=== PATIENT | male | born 1965 | race Caucasian/White ===

== ENCOUNTER 2018-11-26 06:13 | Day surgery (SDC) | payer OTHER ==
[~2018-11-26] VITALS: Ht 165.1 cm; Wt 77.1 kg
[2018-11-26] MEDS ORDERED: MIDAZOLAM 2 MG/2 ML VIAL ONE ×2 (07:40)
[2018-11-26] MEDS ORDERED: fentaNYL 0.05 MG/ML VIAL ONE (07:40)
[2018-11-26] MEDS ORDERED: MIDAZOLAM 2 MG/2 ML VIAL IVP SCH (10:45)
== END 2018-11-26 08:50 | disposition home or self-care (01) ==
LOC: MDS 06:13 → MMU 06:15 → MDS 08:50
PROVIDERS: ATTEND Internal Medicine Gastroenterology
DX: K31.89 Other diseases of stomach and duodenum (principal); E66.9 Obesity, unspecified; Z68.28 Body mass index [BMI] 28.0-28.9, adult; Z79.899 Other long term (current) drug therapy
CPT/HCPCS: 36415; 43239; 86677; J2250; J3010